=== PATIENT | male | born 1985 | race Caucasian/White ===

== ENCOUNTER 2021-04-19 17:36 | Emergency (ER) | payer OTHER, SELFPAY ==
--- NOTE | ~2021-04-19 | XR_ITS ---
EXAMINATION: XR CHEST CLINICAL INFORMATION: Cough and weakness COMPARISON: None TECHNIQUE: 2 views of the chest were obtained. FINDINGS: No significant abnormality is noted involving the heart, lungs, mediastinum, bony thorax or soft tissues. A metallic device overlies the lower cervical spine. XR/XR chest 2V IMPRESSION: No acute intrathoracic disease.
[2021-04-19 17:51] VITALS: BP 127/68; PULSE 78; RESP 16; TEMP 36.6; O2SAT 98; BMI 31.4
[2021-04-19 20:04] LABS: MANUAL DIFF FLAG NO
[2021-04-19 20:05] LABS: Basophils Percent Auto 0.4 % (0-2); Eosinophils Absolute Auto 0.1 X10*3/uL (0.0-0.4); Eosinophils Percent Auto 1.5 % (0-4); Hematocrit 40.1 % (42-52); Imm Gran Abs Auto 0.06 X10*3/uL (0.00-0.03); Imm Gran Pct Auto 0.9 % (0.0-0.4); Lymphocytes Absolute Auto 3.5 X10*3/uL (1.2-4.9); Lymphocytes Percent Auto 51.6 % (20-40); Mean Corpuscular HGB Conc 34.9 g/dl (31.0-36.0); Mean Corpuscular Hemoglobin 29.2 pg (27.0-33.0); Mean Corpuscular Volume 83.7 fL (80-98); Mean Platelet Volume 9.5 fL (9.4-12.4); Monocytes Absolute Auto 0.6 X10*3/uL (0.1-1.2); Monocytes Percent Auto 8.3 % (2-11); Neutrophils Absolute Auto 2.5 X10*3/uL (2.0-8.3); Neutrophils Percent Auto 37.3 % (45-73); Platelet Count 257 X10*3/uL (160-400); Red Blood Count 4.79 X10*6/uL (4.60-5.80); Red Cell Distribution Width 12.3 % (11.0-16.0); White Blood Count 6.7 X10*3/uL (4.8-10.8)
[2021-04-19 20:25] LABS: Alanine Aminotransferase 28 U/L (0-40); Albumin Level 4.4 g/dL (3.5-5.0); Alkaline Phosphatase 78 U/L (39-117); Anion Gap 11 (12-20); Aspartate Amino Transferase 20 U/L (5-37); Bilirubin Total 0.2 mg/dL (0.0-1.0); Blood Urea Nitrogen 9 mg/dL (9-16); Calcium 9.2 mg/dL (8.4-10.2); Carbon Dioxide 25 mmol/L (22-29); Chloride 108 mmol/L (96-108); Creatinine Clr Calc Pharmacy 137.2; Estimated Glomerular Filt Rate > 60; Glucose Random 92 mg/dL (60-115); Sodium 140 mmol/L (135-145); Total Protein 7.1 g/dL (6.5-8.0)
--- NOTE | 2021-04-19 21:17 | ED.DIZZY ---
HPI - Dizziness General Chief Complaint: Dizziness Stated Complaint: Light headed Time Seen by Provider: 04/19/21 21:17 Source: patient Mode of arrival: ambulatory Limitations: no limitations History of Present Illness HPI Narrative: Dizziness, fatigue and migraines. patient states on standing he gets dizzy. patient states he gets it with standing after a while. Patient with three week history of cough states he is vaccinated and covid negative. MD elicited complaint: lightheadedness Onset (ago): week(s) Timing: gradual onset Severity: moderate Description: sense of movement and lightheadedness History of similar symptoms: No Exacerbating factors: movement/ambulation Relieving factors: nothing Associated symptoms: other (cough) Related Data Previous Rx's Medication Instructions Recorded oubsnhwnsvsub-[id number] 2.5 20 ml PO Q4H PRN #118 ml 04/19/21 mg-5 mg-50 mg/5 mL oral liquid (Robitussin Cough and Cold CF) Allergies Allergy/AdvReac Type Severity Reaction Status Date / Time No Known Allergies Allergy Verified 04/19/21 17:54 [facility] Social History Social History Advance Directives: No Advance Directives Information Provided: Yes Physical Exam Vital Signs: Vital Signs: Last Vital Signs Temp 97.9 F 04/19/21 22:00 Pulse 76 04/19/21 22:19 Resp 16 04/19/21 22:00 BP 91/53 L 04/19/21 22:19 Pulse Ox 97 04/19/21 22:00 Body Mass Index 31.4 Course Reevaluation(s) Reevaluation #1: Patient with orthostatic hypotension Time: 22:58 Reevaluation #2: patient with orthostatic hypotension given IV fluids, viral URI with COVID negative will dc home Time: 23:33 MDM - Dizziness Lab Data Result diagrams: 04/19/21 19:58 04/19/21 19:58 Labs: Lab Results 04/19/21 04/19/21 04/19/21 Range/Units 19:58 19:58 22:24 WBC 6.7 (4.8-10.8) X10*3/uL RBC 4.79 (4.60-5.80) X10*6/uL Hgb 14.0 (14.0-18.0) g/dl Hct 40.1 L (42-52) % MCV 83.7 (80-98) fL MCH 29.2 (27.0-33.0) pg MCHC 34.9 (31.0-36.0) g/dl RDW 12.3 (11.0-16.0) % Plt Count 257 (160-400) X10*3/uL MPV 9.5 (9.4-12.4) fL Immature Gran % (Auto) 0.9 H (0.0-0.4) % Neut % (Auto) 37.3 L (45-73) % Lymph % (Auto) 51.6 H (20-40) % Twiggs % (Auto) 8.3 (2-11) % Eos % (Auto) 1.5 (0-4) % Baso % (Auto) 0.4 (0-2) % Lymph # (Auto) 3.5 (1.2-4.9) X10*3/uL Twiggs # (Auto) 0.6 (0.1-1.2) X10*3/uL Eos # (Auto) 0.1 (0.0-0.4) X10*3/uL Baso # (Auto) 0.0 (0.0-0.2) X10*3/uL Abs Immat Gran (auto) 0.06 H (0.00-0.03) X10*3/uL Absolute Neuts (auto) 2.5 (2.0-8.3) X10*3/uL Absolute Nucleated RBC 0.000 (0.0-0.012) X10*3/uL Nucleated RBC % (auto) 0.0 (0.0-0.2) /100WBC Sodium 140 (135-145) mmol/L Potassium 4.0 (3.3-5.1) mmol/L Chloride 108 (96-108) mmol/L Carbon Dioxide 25 (22-29) mmol/L Anion Gap 11 L (12-20) BUN 9 (9-16) mg/dL Creatinine 0.79 (0.5-1.4) mg/dL Estim Creat Clear Calc 137.2 Estimated GFR > 60 Random Glucose 92 (60-115) mg/dL Calcium 9.2 (8.4-10.2) mg/dL Total Bilirubin 0.2 (0.0-1.0) mg/dL AST 20 (5-37) U/L ALT 28 (0-40) U/L Alkaline Phosphatase 78 (39-117) U/L Total Protein 7.1 (6.5-8.0) g/dL Albumin 4.4 (3.5-5.0) g/dL Coronavirus (PCR) NEGATIVE (Negative) Influenza Type A (PCR) NEGATIVE (Negative) Influenza Type B (PCR) NEGATIVE (Negative) RSV RNA Qual (PCR) NEGATIVE (Negative) Imaging Data Chest x-ray: Radiologist's impression: IMPRESSION: No acute intrathoracic disease. Discharge Plan Discharge Clinical Impression: Orthostatic hypotension, Viral upper respiratory illness Patient Disposition: Home, Self-Care Instructions: Upper Respiratory Infection (ED), Hypotension (ED) Additional Instructions: you are dehydrated, must increase fluid intake Prescriptions: New Robitussin Cough and Cold CF 2.5-5-50 mg/5 mL liquid 20 ml PO Q4H PRN (Reason: cough) Qty: 118 RF: 0 Referrals: Danyel Vargas MD [Primary Care Provider] - 1 week
[2021-04-19 22:00] VITALS: BP 109/54; PULSE 67; RESP 16; TEMP 36.6; O2SAT 97
[2021-04-19 22:17] VITALS: BP 96/50; BP 98/54; PULSE 65; PULSE 71
[2021-04-19 22:19] VITALS: BP 91/53; PULSE 76
[2021-04-19] MEDS: 0.9 % Sodium Chloride 1,000 ML 999 ML IVCONT ×2 (23:03→23:07)
[2021-04-19] MEDS: guaiFENesin 200 MG/10 ML 10 ML LIQUID PO (23:04)
[2021-04-19 23:11] LABS: Influenza A PCR NEGATIVE (Negative); Influenza B PCR NEGATIVE (Negative); Resp Syncy Virus RNA Qual PCR NEGATIVE (Negative); SARS COV2 PCR INHOUSE NEGATIVE (Negative)
[2021-04-19 23:48] VITALS: BP 105/61; PULSE 68; RESP 16; O2SAT 99
== END 2021-04-20 00:26 | disposition home or self-care (01) ==
PROVIDERS: Emergency Provider Emergency Medicine; PCP Internal Medicine
DX: I95.1 Orthostatic hypotension (principal); B34.9 Viral infection, unspecified; R42 Dizziness and giddiness; R06.02 Shortness of breath; Z20.822 Contact with and (suspected) exposure to COVID-19; Z79.899 Other long term (current) drug therapy
CPT/HCPCS: 0241U; 36415; 71046; 80053; 85025; 96360; 99284

== ENCOUNTER 2021-04-20 14:11 | Outpatient (REF) | payer OTHER, SELFPAY ==
[2021-04-21 15:30] LABS: HIV RNA PCR Qn Copies 187 copies/mL (NOT DETECTED); HIV RNA PCR Qn Log Copies 2.27 (NOT DETECTED)
== END 2021-04-20 14:12 | disposition home or self-care (01) ==
LOC: HO.HMGCLDS 14:11
PROVIDERS: Visit Provider Internal Medicine
DX: B20 Human immunodeficiency virus [HIV] disease (principal)
CPT/HCPCS: 36415; 87536

== ENCOUNTER 2021-12-20 23:17 | Emergency (ER) | payer OTHER, SELFPAY ==
[2021-12-20 23:56] VITALS: BP 131/51; PULSE 90; RESP 16; TEMP 35.9; O2SAT 97; BMI 32.3
--- NOTE | 2021-12-21 | ECG_ITS ---
Test Reason : BURNING IN CHEST Blood Pressure : / mmHG Vent. Rate : 080 BPM Atrial Rate : 080 BPM P-R Int : 152 ms QRS Dur : 090 ms QT Int : 368 ms P-R-T Axes : 043 058 038 degrees QTc Int : 424 ms Normal sinus rhythm Normal ECG No previous ECGs available Referred By: Generic ED Physician Electronically Signed By:Castro Torres
[2021-12-21 00:15] LABS: Basophils Percent Auto 0.5 % (0-2); Eosinophils Absolute Auto 0.3 X10*3/uL (0.0-0.4); Eosinophils Percent Auto 3.6 % (0-4); Hematocrit 41.5 % (42.0-52.0); Hemoglobin 14.5 g/dl (14.0-18.0); Imm Gran Abs Auto 0.07 X10*3/uL (0.00-0.03); Imm Gran Pct Auto 0.9 % (0.0-0.4); Lymphocytes Absolute Auto 3.8 X10*3/uL (1.2-4.9); Lymphocytes Percent Auto 47.1 % (20-40); MANUAL DIFF FLAG NO; Mean Corpuscular HGB Conc 34.9 g/dl (31.0-36.0); Mean Corpuscular Hemoglobin 29.2 pg (27.0-33.0); Mean Corpuscular Volume 83.7 fL (80.0-98.0); Mean Platelet Volume 9.6 fL (9.4-12.4); Monocytes Absolute Auto 0.7 X10*3/uL (0.1-1.2); Monocytes Percent Auto 9.1 % (2-11); Neutrophils Absolute Auto 3.1 x10*3/uL (2.0-8.3); Neutrophils Percent Auto 38.8 % (45-73); Platelet Count 306 X10*3/uL (160-400); Red Blood Count 4.96 X10*6/uL (4.60-5.80); Red Cell Distribution Width 12.4 % (11.0-16.0); White Blood Count 8.1 X10*3/uL (4.8-10.8)
[2021-12-21 00:39] LABS: Alanine Aminotransferase 40 U/L (0-40); Albumin Level 4.4 g/dL (3.5-5.0); Alkaline Phosphatase 95 U/L (39-117); Anion Gap 13 (12-20); Aspartate Amino Transferase 24 U/L (5-37); Bilirubin Direct < 0.2 mg/dL (0.0-0.5); Bilirubin Total 0.4 mg/dL (0.0-1.0); Blood Urea Nitrogen 10 mg/dL (9-16); Calcium 9.4 mg/dL (8.4-10.2); Carbon Dioxide 23 mmol/L (22-29); Chloride 106 mmol/L (96-108); Creatinine Clr Calc Pharmacy 122.1; Estimated Glomerular Filt Rate > 60; Glucose Random 95 mg/dL (60-115); Lipase 32 U/L (8-78); Potassium 3.5 mmol/L (3.3-5.1); Sodium 138 mmol/L (135-145); Total Protein 7.4 g/dL (6.5-8.0)
== END 2021-12-21 09:27 | disposition left against medical advice (07) ==
PROVIDERS: Emergency Provider Emergency Medicine; PCP Internal Medicine
DX: K92.0 Hematemesis (principal); R10.13 Epigastric pain
CPT/HCPCS: 36415; 80048; 80076; 83690; 85025; 93005; 99281; 99283

== ENCOUNTER 2022-03-26 20:36 | Emergency (ER) | payer OTHER, SELFPAY ==
--- NOTE | ~2022-03-26 | XR_ITS ---
EXAMINATION: XR CHEST CLINICAL INFORMATION: Cough COMPARISON: 04/19/2021 TECHNIQUE: Frontal view of the chest was obtained. FINDINGS: No significant abnormality is noted involving the heart, lungs, mediastinum, bony thorax or soft tissues. XR/XR chest 1V IMPRESSION: Unremarkable examination.
[2022-03-26 21:26] VITALS: BP 110/56; PULSE 90; RESP 18; TEMP 36.6; O2SAT 99; BMI 34.4
[2022-03-26 23:02] LABS: COVID-19 Test Negative (Negative)
== END 2022-03-27 00:30 | disposition left against medical advice (07) ==
PROVIDERS: Emergency Provider Emergency Medicine
DX: R05.9 Cough, unspecified (principal); Z20.822 Contact with and (suspected) exposure to COVID-19
CPT/HCPCS: 71045; 87635; 99281; 99283

== ENCOUNTER 2022-07-19 11:02 | Emergency (ER) | payer OTHER, SELFPAY ==
[2022-07-19 11:39] VITALS: BP 116/77; PULSE 88; RESP 20; TEMP 36.8; O2SAT 96; BMI 41.9
--- NOTE | 2022-07-19 11:47 | ED.GENADULT ---
HPI - General Adult General Chief complaint: Abdominal Pain <SOFIE Cunha - Last Filed: 07/23/22 11:42> Stated complaint: abd pain, quest hernia <SOFIE Cunha - Last Filed: 07/23/22 11:42> Time Seen by Provider: 07/19/22 14:15 <SOFIE Cunha - Last Filed: 07/23/22 11:42> Source: patient <Clare Ruggiero NP - Last Filed: 07/19/22 17:19> Mode of arrival: ambulatory <Clare Ruggiero NP - Last Filed: 07/19/22 17:19> Limitations: no limitations <Clare Ruggiero NP - Last Filed: 07/19/22 17:19> History of Present Illness HPI narrative: 36-year-old male past medical history of HIV on anti-retroviral therapy presents to the emergency department with a 2 month history of diffuse abdominal pain with intermittent nausea and vomiting and headaches and decreased appetite. He believes he may have a hernia on the right upper abdominal quadrant due to feeling a ?bump? on his abdomen. He denies any recent illnesses, or sick contacts, denies any fever, chills, weight loss, diarrhea. He denies any new sexual partners and states he is in a stable relationship. He is followed by a clinic regarding his HIV states his disease process is stable. <Clare Ruggiero NP - Last Filed: 07/19/22 17:19> Related Data Home medications: Previous Rx's Medication Instructions Recorded qgjcbjwuavlhu-DN-zvjbpsngoxn 2.5 20 ml PO Q4H PRN cough #118 mL 04/19/21 mg-5 mg-50 mg/5 mL oral liquid (Robitussin Cough and Cold CF) albuterol sulfate 90 mcg/actuation 1 inh inhalation QID PRN shortness 04/20/21 aerosol inhaler (Ventolin HFA) of breath or wheezing #8.5 grams azithromycin 250 mg tablet See Rx Instructions PO .COMPLEX #6 04/20/21 tabs ondansetron 4 mg disintegrating 4 mg PO Q6H PRN nausea and 07/19/22 tablet vomiting #20 tabs pantoprazole 20 mg tablet,delayed 20 mg PO DAILY #14 tabs 07/19/22 release (Protonix) <SOFIE Cunha - Last Filed: 07/23/22 11:42> Allergies/adverse reactions: Allergies Allergy/AdvReac Type Severity Reaction Status Date / Time No Known Allergies Allergy Verified 12/21/21 00:01 <SOFIE Cunha - Last Filed: 07/23/22 11:42> Review of Systems Review of Systems: In addition to documented HPI above, the additional ROS was obtained: Constitutional: No Weight loss, No Fever, No Chills ENT/Mouth: No Ear Pain, No Nasal Congestion, No Sinus Pain, No Hoarseness, No sore throat, No Rhinorrhea, No Swallowing Difficulty Cardiovascular: No Chest Pain, No SOB Respiratory: No Cough, No Sputum, No Wheezing Gastrointestinal: No Diarrhea, No Constipation, No Abdominal pain Genitourinary: No Dysuria, No Urinary Frequency, No Hematuria, No Urinary Incontinence/retention, No Urgency, No Flank Pain Musculoskeletal: No joint pain, No Myalgias, No Joint Swelling Skin: No Skin Lesions, No rash Neuro: No Weakness, No Numbness, No Paresthesias <Clare Ruggiero NP - Last Filed: 07/19/22 17:19> Yes all other systems are reviewed and are negative <Clare Ruggiero NP - Last Filed: 07/19/22 17:19> [facility] Past Medical History Attestation statement: The following information was validated with the patient. <Clare Ruggiero NP - Last Filed: 07/19/22 17:19> Source: old records reviewed <Clare Ruggiero NP - Last Filed: 07/19/22 17:19> Social History Social History: Social History Advance Directives: No Advance Directives Information Provided: No <SOFIE Cunha - Last Filed: 07/23/22 11:42> Physical Exam ED Vital Signs: Vital Signs - 24 hr 07/19/22 11:39 07/19/22 14:00 Temperature 98.2 F 98.5 F Pulse Rate 88 91 Respiratory Rate 20 16 Blood Pressure 116/77 112/79 Pulse Oximetry 96 95 Oxygen Delivery Method Room Air Room Air BMI result Body Mass Index 41.9 <SOFIE Cunha - Last Filed: 07/23/22 11:42> Vital Signs - 24 hr 07/19/22 11:39 07/19/22 14:00 Temperature 98.2 F 98.5 F Pulse Rate 88 91 Respiratory Rate 20 16 Blood Pressure 116/77 112/79 Pulse Oximetry 96 95 Oxygen Delivery Method Room Air Room Air BMI result Body Mass Index 41.9 <Clare Ruggiero NP - Last Filed: 07/19/22 17:19> Const General: cooperative, alert and awake <Clare Ruggiero EQUIPMENT LEAD - Last Filed: 07/19/22 17:19> Nutritional Appearance: well nourished <Clare Ruggiero NP - Last Filed: 07/19/22 17:19> Orientation/consciousness: patient oriented x3 <Clare Ruggiero NP - Last Filed: 07/19/22 17:19> Limitations: no limitations <Clare Ruggiero NP - Last Filed: 07/19/22 17:19> HENFL Head: Yes normal to inspection and Yes atraumatic <Clare Ruggiero NP - Last Filed: 07/19/22 17:19> Ears: hearing grossly normal bilaterally and external ears normal <Clare Ruggiero NP - Last Filed: 07/19/22 17:19> General nose exam: Normal external nose present and Normal nares present <Clare Ruggiero NP - Last Filed: 07/19/22 17:19> Face and sinus: Yes normal facial exam, Yes sinuses nontender and Yes face symmetric <Clare Ruggiero NP - Last Filed: 07/19/22 17:19> Mouth: Normal oral and palatal mucosa present, tongue normal and oropharynx normal <Clare Ruggiero NP - Last Filed: 07/19/22 17:19> Teeth and gingiva: dentition normal <Clare Ruggiero NP - Last Filed: 07/19/22 17:19> Throat: Yes posterior oropharynx normal, Yes tonsils normal and Yes uvula midline <Clare Ruggiero NP - Last Filed: 07/19/22 17:19> Eyes General: appearance normal, both eyes and all related structures <Clare Ruggiero, EQUIPMENT LEAD - Last Filed: 07/19/22 17:19> Visual Villegas: normal visual villegas by confrontation <Clare Ruggiero EQUIPMENT LEAD - Last Filed: 07/19/22 17:19> Alignment and Position: alignment normal <Clare Ruggiero, EQUIPMENT LEAD - Last Filed: 07/19/22 17:19> Periorbital: periorbital findings normal <Clare Ruggiero, EQUIPMENT LEAD - Last Filed: 07/19/22 17:19> Eyelids: Yes eyelids normal <Clare Ruggiero, EQUIPMENT LEAD - Last Filed: 07/19/22 17:19> Conjunctivae: conjunctivae normal <Clare Ruggiero, EQUIPMENT LEAD - Last Filed: 07/19/22 17:19> Sclerae: sclerae normal <Clare Ruggiero, EQUIPMENT LEAD - Last Filed: 07/19/22 17:19> Corneas: corneas normal <Clare Ruggiero, EQUIPMENT LEAD - Last Filed: 07/19/22 17:19> Pupils: Equal, round and reactive pupils present <Clare Ruggiero, EQUIPMENT LEAD - Last Filed: 07/19/22 17:19> EOM: EOMs intact bilaterally <Clare Ruggiero, EQUIPMENT LEAD - Last Filed: 07/19/22 17:19> Neck Neck: Yes normal visual inspection, Yes full ROM and Yes no lymphadenopathy <Clare Ruggiero, EQUIPMENT LEAD - Last Filed: 07/19/22 17:19> Chest Chest palpation & inspection: normal inspection of the chest <Clare Ruggiero, EQUIPMENT LEAD - Last Filed: 07/19/22 17:19> Resp Effort & Inspection: normal respiratory effort and not labored <Clare Ruggiero, EQUIPMENT LEAD - Last Filed: 07/19/22 17:19> Auscultation: clear to auscultation bilaterally, no crackles, no rhonchi and no wheezes <Clare Ruggiero, EQUIPMENT LEAD - Last Filed: 07/19/22 17:19> Cardio Rate: regular rate <Clare Ruggiero, EQUIPMENT LEAD - Last Filed: 07/19/22 17:19> Rhythm: regular rhythm <Clare Pluciennik, EQUIPMENT LEAD - Last Filed: 07/19/22 17:19> GI Inspection: Yes normal to inspection <Clare Ruggiero, EQUIPMENT LEAD - Last Filed: 07/19/22 17:19> Palpation (GI): Soft to palpation and nontender <Clare Ruggiero, EQUIPMENT LEAD - Last Filed: 07/19/22 17:19> Auscultation: normal bowel sounds <Clare Bahman, EQUIPMENT LEAD - Last Filed: 07/19/22 17:19> Back/Spine/Pelvis Cervical Spine: cervical ROM normal <Clare Wildeructyler, EQUIPMENT LEAD - Last Filed: 07/19/22 17:19> Thoracic/Lumbar Spine: thoraco-lumbar ROM normal <Clare Bahman, EQUIPMENT LEAD - Last Filed: 07/19/22 17:19> Skin General skin exam: no rashes or lesions noted <Clare Bahman, EQUIPMENT LEAD - Last Filed: 07/19/22 17:19> Neuro General: patient oriented x3, tone normal and moves all extremities <Clare Bahman, EQUIPMENT LEAD - Last Filed: 07/19/22 17:19> Cranial nerves: Yes Equal, round and reactive pupils present <Clare Bahman, EQUIPMENT LEAD - Last Filed: 07/19/22 17:19> Cognition (Neuro): normal cognition <Clare Bahman, EQUIPMENT LEAD - Last Filed: 07/19/22 17:19> Gait exam (Neuro): Normal gait present <Clare Bahman, EQUIPMENT LEAD - Last Filed: 07/19/22 17:19> Motor exam (neuro): 5/5 motor strength present throughout <Clare Bahman, EQUIPMENT LEAD - Last Filed: 07/19/22 17:19> Extrem General: Yes normal to inspection, Yes full ROM and Yes capillary refill normal <Clare Plfaith, EQUIPMENT LEAD - Last Filed: 07/19/22 17:19> Psych Appearance: grossly normal <Clare Plfaith, EQUIPMENT LEAD - Last Filed: 07/19/22 17:19> Mental Status: mental status grossly normal <Clare Pluctyler, EQUIPMENT LEAD - Last Filed: 07/19/22 17:19> Speech and movement: Normal speech and movement present <Clare Ruggiero NP - Last Filed: 07/19/22 17:19> Affect: normal affect <Clare Ruggiero NP - Last Filed: 07/19/22 17:19> Attitude: cooperative <Clare Ruggiero NP - Last Filed: 07/19/22 17:19> Thought process: Normal thought process present <Clare Ruggiero NP - Last Filed: 07/19/22 17:19> Thought content: Normal thought content present <Clare Ruggiero NP - Last Filed: 07/19/22 17:19> Insight: Good insight present (Psych) <Clare Ruggiero NP - Last Filed: 07/19/22 17:19> Judgement: Good judgement present (Psych) <Clare Ruggiero NP - Last Filed: 07/19/22 17:19> Course Course Course Narrative: RME; presents to the ED for abdominal pain, nausea, and vomitting. patient has tenderness on palpation. patient has ruq tenderness with palpable mass/tenderness/hernia. labs and abdominal CT scan ordered. Vital signs stable. Due to hernia patient will have abdominal ct scan with IV contrast. <SOFIE Cunha - Last Filed: 07/23/22 11:42> Medications Administered Discontinued Medications Generic Name Dose Route Start Last Admin Trade Name Freq PRN Reason Stop Dose Admin Famotidine 20 mg 07/19/22 15:00 07/19/22 15:45 Famotidine 20 Mg Tablet PO 07/19/22 15:01 20 mg ONCE ONE Administration Iohexol 100 ml 07/19/22 15:11 07/19/22 15:11 Iohexol 350 Mg/Ml 100 Ml Infus..Btl IV 07/19/22 15:12 85 ml ONCE ONE Administration <SOFIE Cunha - Last Filed: 07/23/22 11:42> Medications Administered Discontinued Medications Generic Name Dose Route Start Last Admin Trade Name Freq PRN Reason Stop Dose Admin Famotidine 20 mg 07/19/22 15:00 07/19/22 15:45 Famotidine 20 Mg Tablet PO 07/19/22 15:01 20 mg ONCE ONE Administration Iohexol 100 ml 07/19/22 15:11 07/19/22 15:11 Iohexol 350 Mg/Ml 100 Ml Infus..Btl IV 07/19/22 15:12 85 ml ONCE ONE Administration <Clare Ruggiero NP - Last Filed: 07/19/22 17:19> Medical Decision Making Medical Decision Making MDM Narrative: 36-year-old male past medical history of HIV on anti-retroviral therapy presents to the emergency department with a 2 month history of diffuse abdominal pain with intermittent nausea and vomiting and headaches and decreased appetite. CT abdomen pelvis showing no acute intra-abdominal/pelvic abnormality to explain the patient's pain. No evidence for acute appendicitis, mild hepatic steatosis, tiny low-attenuation focus in the lower pole the right kidney is too small likely characterize, but demonstrate benign features likely representing a cyst. No acute abnormality. No follow-up regarding this finding is recommended at this time. Chest x-ray unremarkable. Blood work unremarkable. Urinalysis negative for infection. Serology negative for flu, RSV, COVID-19. Based on history, exam and diagnostics, no concern pneumonia or any other infectious processes at this time. No evidence of hernia on imaging. Patient safe for discharge with recommendations for symptom management with Tylenol and or Motrin for discomfort and ealc-ver-wnaeyuv cold medicine as needed. Plan to discharge with prescription for Zofran to manage nausea. HPI, PE, diagnostics, and plan discussed with patient with no unanswered questions at this time. Patient educated to return to the emergency department for increased cough, shortness of breath, chest pain, nausea with intractable vomiting, worsening headache, weight loss, vision changes, or any other concerning emergent symptoms. Recommended follow-up with his primary care provider for further treatment and management. <Clare Ruggiero NP - Last Filed: 07/19/22 17:19> Lab Data [facility] Lab Attestation statement: I reviewed the patient's lab results. <Clare Ruggiero NP - Last Filed: 07/19/22 17:19> Result Diagrams: : 07/19/22 12:00 07/19/22 12:00 <SOFIE Cunha - Last Filed: 07/23/22 11:42> Labs: Lab Results 12/22/22 12/22/22 12/22/22 Range/Units 12:00 12:00 12:00 WBC 5.0 (4.8-10.8) X10*3/uL RBC 4.89 (4.60-5.80) X10*6/uL Hgb 14.3 (14.0-18.0) g/dl Hct 41.7 L (42.0-52.0) % MCV 85.3 (80.0-98.0) fL MCH 29.2 (27.0-33.0) pg MCHC 34.3 (31.0-36.0) g/dl RDW 12.1 (11.0-16.0) % Plt Count 281 (160-400) X10*3/uL MPV 9.9 (9.4-12.4) fL Immature Gran % (Auto) 0.6 H (0.0-0.4) % Neut % (Auto) 41.1 L (45-73) % Lymph % (Auto) 48.2 H (20-40) % [place] % (Auto) 7.5 (2-11) % Eos % (Auto) 2.0 (0-4) % Baso % (Auto) 0.6 (0-2) % Lymph # (Auto) 2.4 (1.2-4.9) X10*3/uL [place] # (Auto) 0.4 (0.1-1.2) X10*3/uL Eos # (Auto) 0.1 (0.0-0.4) X10*3/uL Baso # (Auto) 0.0 (0.0-0.2) X10*3/uL Abs Immat Gran (auto) 0.03 (0.00-0.03) X10*3/uL Absolute Neuts (auto) 2.1 (2.0-8.3) x10*3/uL Absolute Nucleated RBC 0.000 (0.0-0.012) X10*3/uL Nucleated RBC % (auto) 0.0 (0.0-0.2) /100WBC PT 10.9 (10.0-13.1) SEC INR 1.0 (0.9-1.1) APTT 34.2 (26.0-36.4) SEC Sodium 142 (135-145) mmol/L Potassium 3.9 (3.3-5.1) mmol/L Chloride 109 H (96-108) mmol/L Carbon Dioxide 26 (22-29) mmol/L Anion Gap 11 L (12-20) BUN 10 (9-16) mg/dL Creatinine 0.89 (0.5-1.4) mg/dL Estim Creat Clear Calc 140.0 Estimated GFR > 60 Random Glucose 104 (60-115) mg/dL Calcium 9.1 (8.4-10.2) mg/dL Total Bilirubin 0.4 (0.0-1.0) mg/dL AST 26 (5-37) U/L ALT 38 (0-40) U/L Alkaline Phosphatase 85 (39-117) U/L Total Protein 6.9 (6.5-8.0) g/dL Albumin 4.3 (3.5-5.0) g/dL Lipase 43 (8-78) U/L Urine Color Urine Appearance Urine pH (5.0-9.0) Ur Specific [place] (1.005-1.025) Urine Protein (Neg-Trace) mg/dL Urine Glucose (UA) (Negative) mg/dL Urine Ketones (Negative) mg/dL Urine Blood (Negative) Urine Nitrite (Negative) Ur Leukocyte Esterase (Negative) Influenza Type A (PCR) (Negative) Influenza Type B (PCR) (Negative) RSV RNA Qual (PCR) (Negative) SARS-CoV-2 RNA (RT-PCR) (Negative) 07/19/22 07/19/22 Range/Units 12:00 14:14 WBC (4.8-10.8) X10*3/uL RBC (4.60-5.80) X10*6/uL Hgb (14.0-18.0) g/dl Hct (42.0-52.0) % MCV (80.0-98.0) fL MCH (27.0-33.0) pg MCHC (31.0-36.0) g/dl RDW (11.0-16.0) % Plt Count (160-400) X10*3/uL MPV (9.4-12.4) fL Immature Gran % (Auto) (0.0-0.4) % Neut % (Auto) (45-73) % Lymph % (Auto) (20-40) % [place] % (Auto) (2-11) % Eos % (Auto) (0-4) % Baso % (Auto) (0-2) % Lymph # (Auto) (1.2-4.9) X10*3/uL [place] # (Auto) (0.1-1.2) X10*3/uL Eos # (Auto) (0.0-0.4) X10*3/uL Baso # (Auto) (0.0-0.2) X10*3/uL Abs Immat Gran (auto) (0.00-0.03) X10*3/uL Absolute Neuts (auto) (2.0-8.3) x10*3/uL Absolute Nucleated RBC (0.0-0.012) X10*3/uL Nucleated RBC % (auto) (0.0-0.2) /100WBC PT (10.0-13.1) SEC INR (0.9-1.1) APTT (26.0-36.4) SEC Sodium (135-145) mmol/L Potassium (3.3-5.1) mmol/L Chloride (96-108) mmol/L Carbon Dioxide (22-29) mmol/L Anion Gap (12-20) BUN (9-16) mg/dL Creatinine (0.5-1.4) mg/dL Estim Creat Clear Calc Estimated GFR Random Glucose (60-115) mg/dL Calcium (8.4-10.2) mg/dL Total Bilirubin (0.0-1.0) mg/dL AST (5-37) U/L ALT (0-40) U/L Alkaline Phosphatase (39-117) U/L Total Protein (6.5-8.0) g/dL Albumin (3.5-5.0) g/dL Lipase (8-78) U/L Urine Color Yellow Urine Appearance Clear Urine pH 5.5 (5.0-9.0) Ur Specific [place] 1.015 (1.005-1.025) Urine Protein Negative (Neg-Trace) mg/dL Urine Glucose (UA) Negative (Negative) mg/dL Urine Ketones Negative (Negative) mg/dL Urine Blood Negative (Negative) Urine Nitrite Negative (Negative) Ur Leukocyte Esterase Negative (Negative) Influenza Type A (PCR) NEGATIVE (Negative) Influenza Type B (PCR) NEGATIVE (Negative) RSV RNA Qual (PCR) NEGATIVE (Negative) SARS-CoV-2 RNA (RT-PCR) NEGATIVE (Negative) <SOFIE Cunha - Last Filed: 07/23/22 11:42> Lab Results 07/19/22 07/19/22 07/19/22 Range/Units 12:00 12:00 12:00 WBC 5.0 (4.8-10.8) X10*3/uL RBC 4.89 (4.60-5.80) X10*6/uL Hgb 14.3 (14.0-18.0) g/dl Hct 41.7 L (42.0-52.0) % MCV 85.3 (80.0-98.0) fL MCH 29.2 (27.0-33.0) pg MCHC 34.3 (31.0-36.0) g/dl RDW 12.1 (11.0-16.0) % Plt Count 281 (160-400) X10*3/uL MPV 9.9 (9.4-12.4) fL Immature Gran % (Auto) 0.6 H (0.0-0.4) % Neut % (Auto) 41.1 L (45-73) % Lymph % (Auto) 48.2 H (20-40) % [place] % (Auto) 7.5 (2-11) % Eos % (Auto) 2.0 (0-4) % Baso % (Auto) 0.6 (0-2) % Lymph # (Auto) 2.4 (1.2-4.9) X10*3/uL [place] # (Auto) 0.4 (0.1-1.2) X10*3/uL Eos # (Auto) 0.1 (0.0-0.4) X10*3/uL Baso # (Auto) 0.0 (0.0-0.2) X10*3/uL Abs Immat Gran (auto) 0.03 (0.00-0.03) X10*3/uL Absolute Neuts (auto) 2.1 (2.0-8.3) x10*3/uL Absolute Nucleated RBC 0.000 (0.0-0.012) X10*3/uL Nucleated RBC % (auto) 0.0 (0.0-0.2) /100WBC PT 10.9 (10.0-13.1) SEC INR 1.0 (0.9-1.1) APTT 34.2 (26.0-36.4) SEC Sodium 142 (135-145) mmol/L Potassium 3.9 (3.3-5.1) mmol/L Chloride 109 H (96-108) mmol/L Carbon Dioxide 26 (22-29) mmol/L Anion Gap 11 L (12-20) BUN 10 (9-16) mg/dL Creatinine 0.89 (0.5-1.4) mg/dL Estim Creat Clear Calc 140.0 Estimated GFR > 60 Random Glucose 104 (60-115) mg/dL Calcium 9.1 (8.4-10.2) mg/dL Total Bilirubin 0.4 (0.0-1.0) mg/dL AST 26 (5-37) U/L ALT 38 (0-40) U/L Alkaline Phosphatase 85 (39-117) U/L Total Protein 6.9 (6.5-8.0) g/dL Albumin 4.3 (3.5-5.0) g/dL Lipase 43 (8-78) U/L Urine Color Urine Appearance Urine pH (5.0-9.0) Ur Specific [place] (1.005-1.025) Urine Protein (Neg-Trace) mg/dL Urine Glucose (UA) (Negative) mg/dL Urine Ketones (Negative) mg/dL Urine Blood (Negative) Urine Nitrite (Negative) Ur Leukocyte Esterase (Negative) Influenza Type A (PCR) (Negative) Influenza Type B (PCR) (Negative) RSV RNA Qual (PCR) (Negative) SARS-CoV-2 RNA (RT-PCR) (Negative) 07/19/22 07/19/22 Range/Units 12:00 14:14 WBC (4.8-10.8) X10*3/uL RBC (4.60-5.80) X10*6/uL Hgb (14.0-18.0) g/dl Hct (42.0-52.0) % MCV (80.0-98.0) fL MCH (27.0-33.0) pg MCHC (31.0-36.0) g/dl RDW (11.0-16.0) % Plt Count (160-400) X10*3/uL MPV (9.4-12.4) fL Immature Gran % (Auto) (0.0-0.4) % Neut % (Auto) (45-73) % Lymph % (Auto) (20-40) % [place] % (Auto) (2-11) % Eos % (Auto) (0-4) % Baso % (Auto) (0-2) % Lymph # (Auto) (1.2-4.9) X10*3/uL [place] # (Auto) (0.1-1.2) X10*3/uL Eos # (Auto) (0.0-0.4) X10*3/uL Baso # (Auto) (0.0-0.2) X10*3/uL Abs Immat Gran (auto) (0.00-0.03) X10*3/uL Absolute Neuts (auto) (2.0-8.3) x10*3/uL Absolute Nucleated RBC (0.0-0.012) X10*3/uL Nucleated RBC % (auto) (0.0-0.2) /100WBC PT (10.0-13.1) SEC INR (0.9-1.1) APTT (26.0-36.4) SEC Sodium (135-145) mmol/L Potassium (3.3-5.1) mmol/L Chloride (96-108) mmol/L Carbon Dioxide (22-29) mmol/L Anion Gap (12-20) BUN (9-16) mg/dL Creatinine (0.5-1.4) mg/dL Estim Creat Clear Calc Estimated GFR Random Glucose (60-115) mg/dL Calcium (8.4-10.2) mg/dL Total Bilirubin (0.0-1.0) mg/dL AST (5-37) U/L ALT (0-40) U/L Alkaline Phosphatase (39-117) U/L Total Protein (6.5-8.0) g/dL Albumin (3.5-5.0) g/dL Lipase (8-78) U/L Urine Color Yellow Urine Appearance Clear Urine pH 5.5 (5.0-9.0) Ur Specific [place] 1.015 (1.005-1.025) Urine Protein Negative (Neg-Trace) mg/dL Urine Glucose (UA) Negative (Negative) mg/dL Urine Ketones Negative (Negative) mg/dL Urine Blood Negative (Negative) Urine Nitrite Negative (Negative) Ur Leukocyte Esterase Negative (Negative) Influenza Type A (PCR) NEGATIVE (Negative) Influenza Type B (PCR) NEGATIVE (Negative) RSV RNA Qual (PCR) NEGATIVE (Negative) SARS-CoV-2 RNA (RT-PCR) NEGATIVE (Negative) <Claer Ruggiero NP - Last Filed: 07/19/22 17:19> Radiology Impression Discussion of test interpretation with radiology: I have reviewed the radiologist's reading. <Clare Ruggiero NP - Last Filed: 07/19/22 17:19> Radiologist Impression: EXAMINATION: XR CHEST CLINICAL INFORMATION: Persistent cough COMPARISON: 03/26/2022 TECHNIQUE: 2 views of the chest were obtained. FINDINGS: No significant abnormality is noted involving the heart, lungs, mediastinum, bony thorax or soft tissues. XR/XR chest 2V IMPRESSION: Unremarkable examination. Dictated By: Justin Martinez MD Signed By: <Electronically signed by Justin Martinez MD in [place]> 07/19/22 1546 DD/ 1515 TD/TT:? Emotional Support Teacher: ALYCE EXAMINATION: CT ABDOMEN AND PELVIS WITH CONTRAST? CLINICAL INFORMATION: Abdominal pain, rule out incarcerated hernia/appendicitis.? COMPARISON: None? TECHNIQUE: Multidetector volumetric images were obtained from the superior aspect of the liver through the pubic symphysis following administration 85 mL of Omnipaque 350 intravenous contrast. Sagittal and coronal reformatted images were obtained on the technologist's workstation.? Oral contrast: No This CT examination was performed using dose optimization techniques as appropriate, variously including the following: *Automated exposure control *Adjustment of mA and/or kV according to patient size (this includes techniques or standardized protocols for targeted exams where dose is matched to indication/reason for exam; i.e. extremities or head) *Use of iterative reconstruction technique DLP: 740 mGy-cm FINDINGS: LUNG BASES: The visualized lung bases are unremarkable.? LIVER, GALLBLADDER, AND BILIARY TREE: Mild diffuse decreased hepatic attenuation without focal abnormality. Status post cholecystectomy. No biliary ductal dilatation PANCREAS: Unremarkable.? SPLEEN: Unremarkable.? ADRENAL GLANDS: Unremarkable.? KIDNEYS AND URETERS: Right kidney tiny low-attenuation focus is too small adequately characterize. No nephrolithiasis or hydronephrosis bilaterally. BLADDER: Unremarkable.? GASTROINTESTINAL TRACT: The stomach and small bowel unremarkable. Surgical clips are seen at the base of the cecum without surrounding abnormality. The appendix is not visualized. No evidence for acute appendicitis. The colon and rectum are unremarkable.? ABDOMINAL WALL: No significant hernia is appreciated.? LYMPH NODES: No lymphadenopathy. VASCULAR: Unremarkable. PELVIC VISCERA: Unremarkable.? OSSEOUS STRUCTURES: Unremarkable.? CT/CT abdomen pelvis w IV con IMPRESSION: 1.? No acute intra-abdominal/pelvic abnormality to explain the patient's pain. No evidence for acute appendicitis. 2.? Mild hepatic steatosis. 3.? Tiny low-attenuation focus in the lower pole the right kidney is too small likely characterize, but demonstrate benign features likely representing a cyst. No acute abnormality. No follow-up regarding this finding is recommended at this time. ? Dictated By: Dagoberto Corcoran MD Signed By: <Electronically signed by Dagoberto Corcoran MD in [place]> 07/19/22 1629 DD/ 1532 TD/TT:? Emotional Support Teacher: GR <Clare Ruggiero NP - Last Filed: 07/19/22 17:19> Discharge Plan Discharge Clinical Impression: Abdominal pain <SOFIE Cunha - Last Filed: 07/23/22 11:42> Patient Disposition: Home, Self-Care <SOFIE Cunha - Last Filed: 07/23/22 11:42> Instructions: Acute Abdominal Pain (ED) <SOFIE Cunha Last Filed: 07/23/22 11:42> Prescriptions: New ondansetron 4 mg tablet,disintegrating 4 mg PO Q6H PRN (Reason: nausea and vomiting) Qty: 20 0RF pantoprazole [Protonix] 20 mg tablet,delayed release (DR/EC) 20 mg PO DAILY Qty: 14 0RF No Action Robitussin Cough and Cold CF 2.5-5-50 mg/5 mL liquid 20 ml PO Q4H PRN (Reason: cough) Qty: 118 0RF azithromycin 250 mg tablet See Rx Instructions PO .COMPLEX Qty: 6 0RF Rx Instructions: take 500 mg today (day 1), then 250 mg for 4 days (days 2-5) PO albuterol sulfate [Ventolin HFA] 90 mcg/actuation HFA aerosol inhaler 1 inh inhalation QID PRN (Reason: shortness of breath or wheezing) Qty: 8.5 1RF <SOFIE Cunha - Last Filed: 07/23/22 11:42> Referrals: [facility] [Provider Group] Dagoberto Baez MD [Primary Care Provider] - <SOFIE Cunha - Last Filed: 07/23/22 11:42> Stand Alone Forms: Work/School Release <SOFIE Cunha - Last Filed: 07/23/22 11:42> Interventions: ED Discharge Assessment Last Done: 07/19/22 17:24 <SOFIE Cunha - Last Filed: 07/23/22 11:42> Discharge Date/Time: 07/19/22 17:29 <SOFIE Cunha - Last Filed: 07/23/22 11:42> Print Language: Albanian <SOFIE Cunha - Last Filed: 07/23/22 11:42>
[2022-07-19 12:22] LABS: MANUAL DIFF FLAG NO
[2022-07-19 12:24] LABS: Basophils Percent Auto 0.6 % (0-2); Eosinophils Absolute Auto 0.1 X10*3/uL (0.0-0.4); Hematocrit 41.7 % (42.0-52.0); Hemoglobin 14.3 g/dl (14.0-18.0); Imm Gran Abs Auto 0.03 X10*3/uL (0.00-0.03); Imm Gran Pct Auto 0.6 % (0.0-0.4); Lymphocytes Absolute Auto 2.4 X10*3/uL (1.2-4.9); Lymphocytes Percent Auto 48.2 % (20-40); Mean Corpuscular HGB Conc 34.3 g/dl (31.0-36.0); Mean Corpuscular Hemoglobin 29.2 pg (27.0-33.0); Mean Corpuscular Volume 85.3 fL (80.0-98.0); Mean Platelet Volume 9.9 fL (9.4-12.4); Monocytes Absolute Auto 0.4 X10*3/uL (0.1-1.2); Monocytes Percent Auto 7.5 % (2-11); Neutrophils Absolute Auto 2.1 x10*3/uL (2.0-8.3); Neutrophils Percent Auto 41.1 % (45-73); Platelet Count 281 X10*3/uL (160-400); Red Blood Count 4.89 X10*6/uL (4.60-5.80); Red Cell Distribution Width 12.1 % (11.0-16.0)
[2022-07-19 12:33] LABS: Prothrombin Time 10.9 SEC (10.0-13.1)
[2022-07-19 12:36] LABS: Partial Thromboplastin Time 34.2 SEC (26.0-36.4)
[2022-07-19 12:38] LABS: Alanine Aminotransferase 38 U/L (0-40); Albumin Level 4.3 g/dL (3.5-5.0); Alkaline Phosphatase 85 U/L (39-117); Anion Gap 11 (12-20); Aspartate Amino Transferase 26 U/L (5-37); Bilirubin Total 0.4 mg/dL (0.0-1.0); Blood Urea Nitrogen 10 mg/dL (9-16); Calcium 9.1 mg/dL (8.4-10.2); Carbon Dioxide 26 mmol/L (22-29); Chloride 109 mmol/L (96-108); Estimated Glomerular Filt Rate > 60; Glucose Random 104 mg/dL (60-115); Lipase 43 U/L (8-78); Potassium 3.9 mmol/L (3.3-5.1); Sodium 142 mmol/L (135-145); Total Protein 6.9 g/dL (6.5-8.0)
[2022-07-19 13:01] LABS: Influenza A PCR NEGATIVE (Negative); Influenza B PCR NEGATIVE (Negative); Resp Syncy Virus RNA Qual PCR NEGATIVE (Negative); SARS COV2 PCR INHOUSE NEGATIVE (Negative)
[2022-07-19 14:00] VITALS: BP 112/79; PULSE 91; RESP 16; TEMP 36.9; O2SAT 95
[2022-07-19 14:26] LABS: Appearance Urine Clear; Color Urine Yellow; Glucose Urine UA Negative (Negative); Leukocyte Esterase Urine Negative (Negative); Nitrite Urine Negative (Negative); PH 5.5 (5.0-9.0); Specific Gravity - Urine 1.015 (1.005-1.025); Urine Blood Negative (Negative); Urine Ketones Negative (Negative); Urine Protein Negative (Neg-Trace)
[2022-07-19] MEDS: iohexoL 350 MG/ML 100 ML INFUS..BTL IV (15:11)
[2022-07-19] MEDS: Famotidine 20 MG TABLET PO (15:45)
== END 2022-07-19 17:29 | disposition home or self-care (01) ==
PROVIDERS: Physician Assistant; Emergency Provider Emergency Medicine Emergency Medical Services; PCP Pediatrics
DX: R10.9 Unspecified abdominal pain (principal); B20 Human immunodeficiency virus [HIV] disease; Z20.828 Contact with and (suspected) exposure to other viral communicable diseases
CPT/HCPCS: 0241U; 36415; 71046; 74177; 80053; 81003; 83690; 85025; 85610; 85730; 99283; 99284; Q9967

== ENCOUNTER 2024-01-04 21:59 | Emergency (ER) | payer OTHER, SELFPAY ==
--- NOTE | 2024-01-04 | ECG_ITS ---
Test Reason : CP Blood Pressure : / mmHG Vent. Rate : 133 BPM Atrial Rate : 133 BPM P-R Int : 150 ms QRS Dur : 084 ms QT Int : 300 ms P-R-T Axes : 044 076 039 degrees QTc Int : 446 ms Sinus tachycardia Otherwise normal ECG When compared with ECG of 21-DEC-2021 00:00, Vent. rate has increased BY 53 BPM Referred By: Generic ED Physician Electronically Signed By:CHRISTY GAMING
[2024-01-04 22:13] VITALS: BP 130/67; PULSE 134; RESP 24; TEMP 36.9; O2SAT 97; BMI 38.2
[2024-01-04 22:37] LABS: MANUAL DIFF FLAG NO
[2024-01-04 22:38] LABS: Basophils Absolute Auto 0.1 X10*3/uL (0.0-0.2); Basophils Percent Auto 0.6 % (0-2); Eosinophils Absolute Auto 0.2 X10*3/uL (0.0-0.4); Eosinophils Percent Auto 1.8 % (0-4); Hematocrit 41.2 % (42.0-52.0); Hemoglobin 14.5 g/dl (14.0-18.0); Imm Gran Abs Auto 0.08 X10*3/uL (0.00-0.03); Lymphocytes Absolute Auto 4.2 X10*3/uL (1.2-4.9); Mean Corpuscular HGB Conc 35.2 g/dl (31.0-36.0); Mean Corpuscular Hemoglobin 29.5 pg (27.0-33.0); Mean Corpuscular Volume 83.9 fL (80.0-98.0); Mean Platelet Volume 9.5 fL (9.4-12.4); Monocytes Absolute Auto 0.5 X10*3/uL (0.1-1.2); Monocytes Percent Auto 6.5 % (2-11); Neutrophils Absolute Auto 3.2 x10*3/uL (2.0-8.3); Neutrophils Percent Auto 39.1 % (45-73); Platelet Count 280 X10*3/uL (160-400); Red Blood Count 4.91 X10*6/uL (4.60-5.80); Red Cell Distribution Width 12.4 % (11.0-16.0); White Blood Count 8.2 X10*3/uL (4.8-10.8)
[2024-01-04 22:53] LABS: Alanine Aminotransferase 34 U/L (0-40); Albumin Level 4.6 g/dL (3.5-5.0); Alkaline Phosphatase 78 U/L (39-117); Anion Gap 15 (12-20); Aspartate Amino Transferase 25 U/L (5-37); Bilirubin Total 0.2 mg/dL (0.0-1.0); Blood Urea Nitrogen 15 mg/dL (9-16); Calcium 9.2 mg/dL (8.4-10.2); Carbon Dioxide 23 mmol/L (22-29); Chloride 105 mmol/L (96-108); Creatinine Clr Calc Pharmacy 117.4; Estimated Glomerular Filt Rate > 60; Glucose Random 163 mg/dL (60-115); Potassium 3.2 mmol/L (3.3-5.1); Sodium 140 mmol/L (135-145); Total Protein 7.7 g/dL (6.5-8.0)
[2024-01-04 23:02] LABS: Troponin-I High Sensitivity < 2.7 ng/L (<3.5-35.0)
[2024-01-05 00:13] VITALS: BP 125/76; PULSE 125; RESP 20; TEMP 37.2; O2SAT 95
--- NOTE | 2024-01-05 00:24 | ED.ANXIETY ---
HPI - Anxiety General Chief Complaint: Anxiety Stated Complaint: had 1 edible very anxious Time Seen by Provider: 01/04/24 23:09 Source: patient Mode of arrival: ambulatory History of Present Illness ED Provider: Dr Springer HPI narrative: 38-year-old male with without significant past medical history presents with having only taken 5-10 mg cannabis edibles previously but this evening decided to take 158 mg, denies any suicidal or homicidal ideation, and denies any attempt to intentionally overdose and presents with experiencing palpitations, anxiety. Related Data Previous Rx's ?Medication ?Instructions ?Recorded [id number] 2.5 20 ml PO Q4H PRN cough #118 mL 04/19/21 mg-5 mg-50 mg/5 mL oral liquid (Robitussin Cough and Cold CF) albuterol sulfate 90 mcg/actuation 1 inh inhalation QID PRN shortness 04/20/21 aerosol inhaler (Ventolin HFA) of breath or wheezing #8.5 grams azithromycin 250 mg tablet See Rx Instructions PO .COMPLEX #6 04/20/21 tabs ondansetron 4 mg disintegrating 4 mg PO Q6H PRN nausea and 07/19/22 tablet vomiting #20 tabs pantoprazole 20 mg tablet,delayed 20 mg PO DAILY #14 tabs 07/19/22 release (Protonix) Allergies Allergy/AdvReac Type Severity Reaction Status Date / Time No Known Allergies Allergy Verified 01/04/24 22:17 Review of Systems Review of Systems: Pertinent positives and negatives as stated in HPI PMFSH Past Medical History Source: nursing notes reviewed Social History Social History Advance Directives: No Advance Directives Information Provided: No Physical Exam Vital Signs: Vital Signs: Last Vital Signs Temp 99.0 F 01/05/24 00:13 Pulse 125 H 01/05/24 00:13 Resp 20 01/05/24 00:13 BP 125/76 01/05/24 00:13 Pulse Ox 95 01/05/24 00:13 O2 Del Method Room Air 01/05/24 00:13 BMI result Body Mass Index 38.2 VITAL SIGNS: Reviewed. GENERAL: Well developed, well nourished, mildly anxious. HEAD: Normocephalic/atraumatic EYES: PERRLA, EOMI EARS: Ext canals without abnormality NOSE: Nares patent bilateral OROPHARYNX: no oral lesions noted, posterior pharynx clear NECK: Supple, no adenopathy LUNGS: Normal breath sounds. No adventitious sounds or accessory muscle use. SpO2<95> CARDIOVASCULAR: Regular rate and rhythm without noted murmurs ABDOMEN: Soft, non-tender, non-distended with bowel sounds. MUSCULOSKELETAL: No tenderness, deformities, or effusions noted on gross inspection. EXTREMITIES: No cyanosis, clubbing or edema. SKIN: Inspection of the skin reveals no rashes NEUROLOGIC: Alert and oriented x 4. Strength and sensation to light touch were grossly intact x 4. Medical Decision Making Medical Decision Making [facility] Narrative: 38-year-old male with history and clinical presentation consistent with accidental overdose on cannabis edibles with subsequent feelings of anxiety and palpitations. No evidence of SI/HI and no AVH. I reviewed all investigations and hematologic indices are negative for leukocytosis/anemia/thrombocytopenia. Chemistry indices negative for YENI and electrolyte evaluation demonstrates mild hypokalemia which will be repleted with 60 mEq of oral potassium chloride and otherwise liver enzymes are within normal limits. EKG demonstrates sinus tachycardia. My interpretation is that patient consumed an excessive amount edibles and is experiencing trigger related side effects but no evidence hallucinations or intent to harm self or others. I informed patient of all results and let him know that when he feels safe for discharge we can let him go home. 0020: Patient informed me that he is ready to be discharged and feels comfortable and safe to go home. Differential Diagnosis Differential Diagnoses: The differential diagnosis associated with the presentation includes Please see the discussion above Admission/Observation Consideration of admission/observation: Escalation of care including admission/observation considered Please see the discussion above Lab Data [facility] Lab Attestation statement: I reviewed the patient's lab results. Please see the discussion above 01/04/24 22:26 01/04/24 22:26 Labs: Lab Results 01/04/24 Range/Units 22:26 WBC 8.2 (4.8-10.8) X10*3/uL RBC 4.91 (4.60-5.80) X10*6/uL Hgb 14.5 (14.0-18.0) g/dl Hct 41.2 L (42.0-52.0) % MCV 83.9 (80.0-98.0) fL MCH 29.5 (27.0-33.0) pg MCHC 35.2 (31.0-36.0) g/dl RDW 12.4 (11.0-16.0) % Plt Count 280 (160-400) X10*3/uL MPV 9.5 (9.4-12.4) fL Immature Gran % (Auto) 1.0 H (0.0-0.4) % Neut % (Auto) 39.1 L (45-73) % Lymph % (Auto) 51.0 H (20-40) % Delta % (Auto) 6.5 (2-11) % Eos % (Auto) 1.8 (0-4) % Baso % (Auto) 0.6 (0-2) % Lymph # (Auto) 4.2 (1.2-4.9) X10*3/uL Delta # (Auto) 0.5 (0.1-1.2) X10*3/uL Eos # (Auto) 0.2 (0.0-0.4) X10*3/uL Baso # (Auto) 0.1 (0.0-0.2) X10*3/uL Abs Immat Gran (auto) 0.08 H (0.00-0.03) X10*3/uL Absolute Neuts (auto) 3.2 (2.0-8.3) x10*3/uL Absolute Nucleated RBC 0.000 (0.0-0.012) X10*3/uL Nucleated RBC % (auto) 0.0 (0.0-0.2) /100WBC Sodium 140 (135-145) mmol/L Potassium 3.2 L (3.3-5.1) mmol/L Chloride 105 (96-108) mmol/L Carbon Dioxide 23 (22-29) mmol/L Anion Gap 15 (12-20) BUN 15 (9-16) mg/dL Creatinine 0.99 (0.5-1.4) mg/dL Estim Creat Clear Calc 117.4 Estimated GFR > 60 Random Glucose 163 H (60-115) mg/dL Calcium 9.2 (8.4-10.2) mg/dL Total Bilirubin 0.2 (0.0-1.0) mg/dL AST 25 (5-37) U/L ALT 34 (0-40) U/L Alkaline Phosphatase 78 (39-117) U/L Troponin I High Sens < 2.7 (<3.5-35.0) ng/L Total Protein 7.7 (6.5-8.0) g/dL Albumin 4.6 (3.5-5.0) g/dL Independent Interpretation I performed an independent interpretation of an: EKG Interpretation: Sinus tachycardia, HR-133, no STEMI, GA/QRS/QTC is within normal limits. External Record Review External record reviewed: Outpatient record and Prior outpatient labs Chronic Conditions Patient?s care impacted by: Other HIV Critical Care Time Critical Care Time Critical Care Time: Yes Total Critical Care Time: 45 Attestation: I personally attest to this time spent taking care of the patient. Discharge Plan Discharge Clinical Impression: Accidental overdose Patient Disposition: Home, Self-Care Instructions: Adult Overdose (ED) Additional Instructions: Do not take this much edibles again. Prescriptions: No Action Robitussin Cough and Cold CF 2.5-5-50 mg/5 mL liquid 20 ml PO Q4H PRN (Reason: cough) Qty: 118 0RF ondansetron 4 mg tablet,disintegrating 4 mg PO Q6H PRN (Reason: nausea and vomiting) Qty: 20 0RF pantoprazole [Protonix] 20 mg tablet,delayed release (DR/EC) 20 mg PO DAILY Qty: 14 0RF azithromycin 250 mg tablet See Rx Instructions PO .COMPLEX Qty: 6 0RF Rx Instructions: take 500 mg today (day 1), then 250 mg for 4 days (days 2-5) PO albuterol sulfate [Ventolin HFA] 90 mcg/actuation HFA aerosol inhaler 1 inh inhalation QID PRN (Reason: shortness of breath or wheezing) Qty: 8.5 1RF Print Language: Macedonian
[2024-01-05 00:38] VITALS: BP 128/58; PULSE 109; RESP 16; TEMP 37.2; O2SAT 96
[2024-01-05 00:39] VITALS: BP 128/58; PULSE 109; RESP 16; TEMP 37.2
== END 2024-01-05 00:39 | disposition home or self-care (01) ==
PROVIDERS: Emergency Provider Student in an Organized Health Care Education/Training Program
DX: F41.9 Anxiety disorder, unspecified (principal); R00.2 Palpitations; T40.711A Poisoning by cannabis, accidental (unintentional), initial encounter; Y92.9 Unspecified place or not applicable
CPT/HCPCS: 36415; 80053; 84484; 85025; 93005; 99284

== ENCOUNTER → 2024-01-04 22:16 | Outpatient (BNV) | payer OTHER, SELFPAY | PROVIDERS: Emergency Provider Student in an Organized Health Care Education/Training Program; Visit Provider Internal Medicine | DX: R00.0 Tachycardia, unspecified (principal) | CPT/HCPCS: 93010 ==